=== PATIENT | female | born 1985 | race Caucasian/White ===

== ENCOUNTER 2016-07-08 15:36 | Emergency (ER) | payer OTHER ==
[~2016-07-08] VITALS: Wt 70.0 kg
[2016-07-08] MEDS ORDERED: AMO500 PO (16:13)
[2016-07-08] MEDS ORDERED: ERYTOPOI BOTH EYES (16:13)
[2016-07-08] MEDS ORDERED: D-ME473S18 PO (16:14)
--- NOTE | 2016-07-08 16:24 | ERD ---
ER Documentation Chief Complaint Date/Time DATE: 07/08/16 TIME: 16:22 Chief Complaint COUGH RED EYES AND RUNNY NOSE AND SORE THROAT FOR A FEW DAYS. HPI This is a 31-year-old female presents to the ER with mom that started 3 days ago. Days ago patient developed a sore throat and yesterday developed bilateral red eyes with yellow discharge from both eyes and bilateral ear pain. Patient has not had any fevers or chills. Her is sick at home with mom will well. She denies any chest pain or shortness of breath. ROS 12 point review of systems was done, all negative except per HPI. Medications Home Meds Active Scripts Dextromethorphan Hb-Promethazine Hcl (Promethazine DM Syrup) 473 Ml Syrup, 10 ML PO Q6H Y for COUGH, #4 OZ Prov:SAI VEGA 07/08/16 Erythromycin* (Erythromycin* Ophthalmic) 1 Applic Oint, 1 APPLIC BOTH EYES QID for 7 Days, EA Prov:SAI VEGA 07/08/16 Amoxicillin* (Amoxicillin*) 500 Mg Cap, 500 MG PO TID for 10 Days, CAP Prov:SAI VEGA 07/08/16 Physical Exam Vitals Vital Signs Date Time Temp Pulse Resp B/P Pulse Ox O2 Delivery O2 Flow Rate FiO2 07/08/16 15:57 98.9 85 21 137/84 98 Physical Exam GENERAL: The patient is well-developed, well-nourished, in no acute distress. HEENT: Atraumatic. Pupils equal, round and reactive to light. Extraocular muscles are grossly intact. Bilateral injected conjunctiva with yellow discharge. Surrounding erythema, nonpainful extraocular movement Bilateral erythematous tympanic membranes. Tonsilar erythema with no exudates or uvular deviation. Clear rhinorrhea. RESPIRATORY: Clear to auscultation bilaterally. There are no rales, wheezes or rhonchi. HEART: Regular rate and rhythm. No murmurs, clicks, rubs or gallops. NEUROLOGIC: Alert and oriented. SKIN: There is no rash. Procedures/MDM Differential diagnosis includes but is not limited to; Viral URI, allergic rhinitis, bronchitis, pertussis,pneumonia. Cough is likely viral in etiology. Clinical suspicion for pneumonia is low as patient appears well, is not hypoxic or in any respiratory distress. Additionally, patient does appear to have otitis media and bacterial conjunctivitis. Suspicion for mastoiditis or orbital cellulitis is low. Patient is afebrile and well-appearing. She'll be sent home with amoxicillin, erythromycin, promethazine. Plan was discussed with patient they understand and agree. Patient needs to follow up with PCP in 1-2 days or return to ER sooner if symptoms worsen. Departure Diagnosis: Primary Impression: Conjunctivitis Additional Impression: Otitis media Condition: Stable Patient Instructions: Otitis Media, Abx Tx (Adult) Additional Instructions: Call your primary care doctor TOMORROW for an appointment during the next 1-2 days.See the doctor sooner or return here if your condition worsens before your appointment time. SAI VEGA Jul 08, 2016 16:24
== END 2016-07-08 16:16 | disposition home or self-care (01) ==
LOC: E/R 15:36
DX: H10.9 Unspecified conjunctivitis (principal); H66.93 Otitis media, unspecified, bilateral
CPT/HCPCS: 99284